=== PATIENT | male | born 1950 | race Caucasian/White ===

== ENCOUNTER 2020-05-09 11:43 | Outpatient (CLI) | payer OTHER, SELFPAY ==
[2020-05-09 12:22] LABS: Basophils Absolute Auto 0.1 K/mm3 (0.0-0.1); Basophils Percent Auto 1.4 % (0.2-1.2); Eosinophils Absolute Auto 0.2 K/mm3 (0-0.3); Eosinophils Percent Auto 4.1 % (0-4.4); Hematocrit 43.2 % (42.0-52.0); Hemoglobin 14.7 g/dL (14.0-18.0); Immature Granulocyte Absolute 0.02 K/mm3 (0.00-0.031); Immature Granulocyte Percent A 0.3 % (0-0.5); Lymphocytes Absolute Auto 2.55 K/mm3 (0.9-3.2); Lymphocytes Percent Auto 43.1 % (18.3-44.2); Mean Corpuscular Volume 105.9 fl (80-100); Mean Platelet Volume 10.5 fl (7.4-10.4); Monocytes Absolute Auto 0.6 K/mm3 (0.1-0.6); Monocytes Percent Auto 9.6 % (2.6-8.5); Neutrophils Absolute Auto 2.5 K/mm3 (1.3-6.7); Neutrophils Percent Auto 41.5 % (45.5-73.1); Platelet Count Result 162 k/mm3 (150-375); Red Blood Count 4.08 M/mm3 (4.6-6.20); Red Cell Distribution Width 14.6 % (11.5-14.5); White Blood Count 5.9 K/mm3 (4.5-10.0)
[2020-05-09 12:31] LABS: Prothrombin Time 14.1 Seconds (11.1-14.7)
[2020-05-09 12:34] LABS: Alanine Aminotransferase 19 U/L (4-50); Albumin Level 3.8 g/dL (3.5-5.1); Alkaline Phosphatase 70 U/L (38-126); Anion Gap 3 mmol/L (8-16); Aspartate Amino Transferase 24 U/L (17-59); Bilirubin,Total 0.4 mg/dL (0.2-1.3); Blood Urea Nitrogen 14 mg/dL (9-20); Calcium 8.5 mg/dL (8.4-10.2); Carbon Dioxide 31 mmol/L (22-30); Chloride 106 mmol/L (98-107); Estimated Glomerular Filt Rate > 60; Glucose 98 mg/dL (75-110); Magnesium 1.9 mg/dL (1.6-2.3); Potassium 4.8 mmol/L (3.4-5.0); Sodium 140 mmol/L (137-145)
[2020-05-09 13:20] LABS: Free T4 Free Thyroxine 0.95 ng/mL (0.78-2.19)
== END 2020-05-09 11:44 | disposition home or self-care (01) ==
PROVIDERS: PCP Internal Medicine; Referring Provider Nurse Practitioner Adult Health; Visit Provider Internal Medicine Cardiovascular Disease
DX: I25.5 Ischemic cardiomyopathy (principal); I47.2 Ventricular tachycardia; Z45.02 Encounter for adjustment and management of automatic implantable cardiac defibrillator; I25.10 Atherosclerotic heart disease of native coronary artery without angina pectoris
CPT/HCPCS: 36415; 80053; 83735; 84439; 84443; 85025; 85610

== ENCOUNTER 2021-01-16 09:42 | Emergency (ER) | payer OTHER, SELFPAY ==
[2021-01-16 09:53] VITALS: BP 154/69; PULSE 50; RESP 16; TEMP 35.7; O2SAT 99
--- NOTE | 2021-01-16 10:17 | ED.GENADULT ---
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 Patient states he was moving a heavy chest of drawers on , January 11. Patient states the next morning when he woke it hurt to walk and he was having pain on the right buttock and right leg. Patient denies numbness denies tingling denies any other associated symptoms. Patient states he has a history of bulging disc in his lumbar area. Patient denies any change to his bowel bladder functions. MD complaint: right back pain Related Data Home Medications Medication Instructions Recorded Confirmed aspirin 81 mg tablet,delayed 81 mg PO DAILY 05/07/19 05/23/20 release metoprolol tartrate 100 mg tablet 100 mg PO DAILY 05/07/19 05/23/20 Allergies Allergy/AdvReac Type Severity Reaction Status Date / Time egg Allergy Unknown Rash Verified 01/16/21 10:22 tramadol Allergy Unknown Rash Verified 01/16/21 10:22 EGGS Allergy Unknown RASH Uncoded 01/16/21 10:22 Review of Systems Review of Systems: CONSTITUTIONAL: Denies body aches, fever, chills, or sweats. EYES: Denies visual changes, redness, or discharge. ENT: Denies rhinorrhea, congestion, sore throat, or otalgia. CARDIOVASCULAR: Denies chest pain, palpitations, or edema. RESPIRATORY: Denies cough or dyspnea. GASTROINTESTINAL: Denies abdominal pain, nausea, vomiting, or diarrhea. GENITOURINARY: Denies dysuria or hematuria. SKIN: Denies rash, itching, or wounds. MUSCULOSKELETAL: + right lower back and buttock pain, joint pain, or myalgia. NEUROLOGIC: Denies headache, numbness, tingling, or weakness. PSYCH: Denies depression or anxiety. All systems reviewed & are unremarkable except as noted in HPI and below PMFSH Past Medical History Medical History Coronary atherosclerosis Major depressive disorder, recurrent, unspecified Smoking 1/2 pack a day or less Family History Family History Father Diabetes mellitus Hypertension Mother Diabetes mellitus Hypertension Sibling Hypertension Social History Social History Smoking status: Current every day smoker (7 cigs a day) Tobacco type: cigarettes (2-3 cigarettes a day) Alcohol intake: never Comments At time of signature, I have reviewed and agree with nursing past medical, surgical, social and family history unless otherwise noted. Please see nursing chart for further information. There is no relevant family history pertinent to the presenting complaint Exam Narrative: GENERAL: Well-appearing, well-nourished, and in no acute distress. HEAD: Normocephalic, atraumatic. EYES: EOMI. No redness or drainage. Conjunctivae normal. ENT: Mucous membranes pink and moist. Nares clear. No rhinorrhea. NECK: Normal AROM. Supple. . MUSCULOSKELETAL: No bony tenderness; Positive straight leg test for right sciatica, neurovascular exam intact Right lower extremity. Pain with palpation right buttock. EXTREMITIES: Normal range of motion. No edema. SKIN: Warm, dry, no rash. Capillary refill normal. Normal skin turgor. NEURO: No focal deficits. Alert and oriented x3. Gait steady. PSYCH: Normal affect. No signs of depression or anxiety. Course Vital Signs Vital signs: Vital Signs Temperature 35.7 C L 01/16/21 09:53 Pulse Rate 50 L 01/16/21 09:53 Respiratory Rate 16 01/16/21 09:53 Blood Pressure 154/69 H 01/16/21 09:53 Pulse Oximetry 99 01/16/21 09:53 Temperature 35.7 C L 01/16/21 09:53 Pulse Rate 50 L 01/16/21 09:53 Respiratory Rate 16 01/16/21 09:53 Blood Pressure 154/69 H 01/16/21 09:53 Pulse Oximetry 99 01/16/21 09:53
== END 2021-01-16 10:34 | disposition home or self-care (01) ==
PROVIDERS: Emergency Provider Nurse Practitioner Family; PCP Internal Medicine
DX: M54.31 Sciatica, right side (principal); F17.210 Nicotine dependence, cigarettes, uncomplicated; I25.10 Atherosclerotic heart disease of native coronary artery without angina pectoris; Z79.82 Long term (current) use of aspirin
CPT/HCPCS: 99213; G0463

== ENCOUNTER 2021-12-25 11:34 | Outpatient (CLI) | payer OTHER, SELFPAY ==
[2021-12-25 19:59] LABS: Alanine Aminotransferase 23 U/L (6-50); Albumin Level 4.5 g/dL (3.5-5.1); Alkaline Phosphatase 83 U/L (38-126); Anion Gap 15 mmol/L (8-16); Aspartate Amino Transferase 65 U/L (17-59); Blood Urea Nitrogen 22 mg/dL (9-20); Calcium 9.1 mg/dL (8.4-10.2); Carbon Dioxide 26 mmol/L (22-30); Chloride 101 mmol/L (98-107); Cholesterol 139 mg/dL (0-200); Estimated Glomerular Filt Rate 60; Glucose 96 mg/dL (65-110); HDL Direct 55 mg/dL; Sodium 142 mmol/L (137-145); Triglycerides 60 mg/dL (<150)
[2021-12-25 20:10] LABS: LDL Cholesterol Direct 58 mg/dL
== END 2021-12-25 11:35 | disposition home or self-care (01) ==
LOC: ANHGOSHLAB 11:36
PROVIDERS: PCP Family Medicine; Visit Provider Family Medicine
DX: E78.2 Mixed hyperlipidemia (principal); I10 Essential (primary) hypertension
CPT/HCPCS: 36415; 80053; 80061

== ENCOUNTER 2022-02-25 12:42 | Outpatient (CLI) | payer OTHER, SELFPAY ==
--- NOTE | 2022-02-26 14:54 | P.PCNPFT_ITS ---
PFT Procedure Performed PFT Procedure Performed Plethysmography (Lung Vol) Diffusing Cap (DLCO) Flow Vol Loop Spirometry w/o Bronchodil PFT Interpretation Lung volumes were measured with the body plethysmography method. Lung volumes are unremarkable. Spirometry showed normal FVC, FEV1 but diminished mid ex piratory flow rates and a diminished FEV1 to FVC ratio of 60% suggestive of obstructive airway disease. Lung diffusion capacity is moderately reduced at 53% predicted. No post bronchodilator study carried out. The flow volume loop is consistent with obstructive airway disease. Impression: Mild obstructive airway disease. Moderately reduced lung diffusion capacity.
== END 2022-02-25 12:43 | disposition home or self-care (01) ==
PROVIDERS: PCP Family Medicine; Visit Provider Internal Medicine Cardiovascular Disease
DX: J98.8 Other specified respiratory disorders (principal)
CPT/HCPCS: 94375; 94726; 94729

== ENCOUNTER 2022-08-27 17:43 | Emergency (ER) | payer OTHER, SELFPAY ==
--- NOTE | 2022-08-27 17:58 | ED.URI ---
HPI - URI/Sore Throat General Chief Complaint: Upper Respiratory Infection Stated Complaint: Sinus/Nausea/Diarrhea Time Seen by Provider: 08/27/22 17:55 Source: patient Mode of arrival: ambulatory Limitations: no limitations History of Present Illness HPI Narrative: Fredi is a 72-year-old male patient presenting to the clinic today with complaints of sinus congestion, sinus pressure, nausea, vomiting, and diarrhea for over 1 week. He reports he has a productive cough bringing up yellow phlegm. He is a current smoker of 1 pack per day for 58 years. Denies any shortness of breath currently. Denies any history of asthma or COPD Related Data Home Medications Medication Instructions Recorded Confirmed aspirin 81 mg tablet,delayed 81 mg PO DAILY 05/07/19 01/23/21 release (Adult Low Dose Aspirin) metoprolol tartrate 100 mg tablet 100 mg PO DAILY 05/07/19 01/23/21 Allergies Allergy/AdvReac Type Severity Reaction Status Date / Time egg Allergy Unknown Rash Verified 08/27/22 17:59 tramadol Allergy Unknown Rash Verified 08/27/22 17:59 Review of Systems Review of Systems: Pertinent positives per HPI. Patient denies any fever, chills, rash, headache, visual changes, dizziness, sore throat, shortness of breath, chest pain, palpitations, nausea, vomiting, diarrhea, constipation, abdominal pain, or any urinary issues. PMFSH Past Medical History Medical History Coronary atherosclerosis Major depressive disorder, recurrent, unspecified Smoking 1/2 pack a day or less Family History Family History Father Diabetes mellitus Hypertension Mother Diabetes mellitus Hypertension Sibling Hypertension Social History Social History Smoking status: Current every day smoker Tobacco type: cigarettes (2-3 cigarettes a day) Alcohol intake: never Comments At the time of my signature, I reviewed and agree with the nursing past medical, surgical, social, and family history. There is no relevant family history pertinent to the patient complaint. Exam Narrative: General: Well-developed, well nourished, in no apparent distress Head: Normocephalic, atraumatic Eyes: Pupils equally round and reactive to light bilaterally, EOM intact, sclera and conjunctive clear, no discharge, lids normal Ears: TMs intact and congested, ear canals clear, no drainage, grossly hearing normal. Nose: Nares patent, yellow nasal discharge, moderate inflammation, maxillary and frontal sinus tenderness. Mouth: Oropharynx red without lesions or masses, good dentition, MMM. Postnasal drip Neck: Supple, trachea midline, no enlargement of anterior or posterior cervical nodes, no thyroid masses or goiter palpable. Cardio: Regular rate and rhythm, s1 and s2 normal, no murmur appreciated. Resp: Diminished lung sounds, no rhonchi, rales, wheezing or rubs Course Course Emergency Course: Portions of this record may have been created with voice recognition software. Level of Care: Express Care Visit Vital Signs Vital signs: Vital signs reviewed MDM - URI/Sore Throat MDM Narrative Medical decision making narrative: At the time of visit patient is resting comfortably on the exam table. I suspect he has got acute bacterial rhinosinusitis gastroenteritis. Will send prescription for Augmentin, prednisone, Zofran. Supportive measures were discussed with the patient he voiced understanding discharge instructions and agrees to treatment plan. Differential Diagnosis Differential diagnosis: Likely upper respiratory infection, otitis media, sinusitis, viral infection, bronchitis, influenza, pharyngitis and other (COVID, gastroenteritis) Discharge Plan Discharge Clinical Impression: Acute bacterial rhinosinusitis, Gastroenteritis Patient Disposition: Home, Self-Care Condition: Stable Instructions: Antibiotic Form, Gastroenterit
[2022-08-27 18:00] VITALS: BP 149/70; PULSE 60; RESP 18; TEMP 37.3; O2SAT 100
== END 2022-08-27 18:14 | disposition home or self-care (01) ==
PROVIDERS: Emergency Provider Nurse Practitioner Family; PCP Family Medicine
DX: J01.90 Acute sinusitis, unspecified (principal); K52.9 Noninfective gastroenteritis and colitis, unspecified; I25.10 Atherosclerotic heart disease of native coronary artery without angina pectoris; F17.210 Nicotine dependence, cigarettes, uncomplicated; Z79.82 Long term (current) use of aspirin
CPT/HCPCS: 99213; G0463

== ENCOUNTER 2022-09-06 13:41 | Outpatient (CLI) | payer OTHER, SELFPAY ==
[2022-09-06 14:00] LABS: Basophils Absolute Auto 0.1 K/mm3 (0.0-0.1); Basophils Percent Auto 0.7 % (0.2-1.2); Eosinophils Absolute Auto 0.2 K/mm3 (0-0.3); Eosinophils Percent Auto 2.7 % (0-4.4); Hematocrit 37.7 % (42.0-52.0); Hemoglobin 12.4 g/dL (14.0-18.0); Immature Granulocyte Absolute 0.07 K/mm3 (0.00-0.031); Lymphocytes Absolute Auto 2.51 K/mm3 (0.9-3.2); Lymphocytes Percent Auto 35.6 % (18.3-44.2); Mean Corpuscular HGB Conc 32.9 g/dl (32-36); Mean Corpuscular Hemoglobin 33.8 pg (26-34); Mean Corpuscular Volume 102.7 fl (80-100); Mean Platelet Volume 10.1 fl (7.4-10.4); Monocytes Absolute Auto 0.6 K/mm3 (0.1-0.6); Monocytes Percent Auto 9.1 % (2.6-8.5); Neutrophils Absolute Auto 3.6 K/mm3 (1.3-6.7); Neutrophils Percent Auto 50.9 % (45.5-73.1); Platelet Count Result 304 k/mm3 (150-375); Red Blood Count 3.67 M/mm3 (4.6-6.20); Red Cell Distribution Width 17.2 % (11.5-14.5); White Blood Count 7.1 K/mm3 (4.5-10.0)
[2022-09-06 14:10] LABS: Alanine Aminotransferase 38 U/L (6-50); Albumin Level 3.4 g/dL (3.5-5.1); Alkaline Phosphatase 104 U/L (38-126); Anion Gap 3 mmol/L (8-16); Aspartate Amino Transferase 26 U/L (17-59); Bilirubin,Total 0.8 mg/dL (0.2-1.3); Blood Urea Nitrogen 12 mg/dL (9-20); Carbon Dioxide 32 mmol/L (22-30); Chloride 103 mmol/L (98-107); Estimated Glomerular Filt Rate > 60; Glucose 112 mg/dL (65-110); Potassium 3.3 mmol/L (3.4-5.0); Sodium 138 mmol/L (137-145)
[2022-09-06 14:18] LABS: NT Pro B Type Natriuretic Pept 2950 pg/mL (19.9-100)
[2022-09-06 15:10] LABS: Thyroid Stimulating Hormone Reflex < 0.015 uIU/mL (0.465-4.68)
[2022-09-06 16:22] LABS: Total Triiodothyronine (T3) 1.31 NG/ML (0.97-1.69)
== END 2022-09-06 13:42 | disposition home or self-care (01) ==
PROVIDERS: PCP Family Medicine; Visit Provider Internal Medicine Cardiovascular Disease
DX: I25.5 Ischemic cardiomyopathy (principal); I50.20 Unspecified systolic (congestive) heart failure; I25.10 Atherosclerotic heart disease of native coronary artery without angina pectoris; Z91.89 Other specified personal risk factors, not elsewhere classified; Z79.899 Other long term (current) drug therapy
CPT/HCPCS: 36415; 80053; 83880; 84439; 84443; 84480; 85025

== ENCOUNTER 2023-01-20 15:30 | Outpatient (CLI) | payer OTHER, SELFPAY ==
[2023-01-20 19:26] LABS: Cholesterol 146 mg/dL (0-200); HDL Direct 60 mg/dL; Triglycerides 65 mg/dL (<150)
[2023-01-20 19:37] LABS: LDL Cholesterol Direct 66 mg/dL
[2023-01-20 19:54] LABS: Prostate Specific Antigen 1.2 ng/mL (< OR = 4.0)
== END 2023-01-20 15:31 | disposition home or self-care (01) ==
PROVIDERS: PCP Family Medicine; Visit Provider Family Medicine
DX: Z12.5 Encounter for screening for malignant neoplasm of prostate (principal); Z13.29 Encounter for screening for other suspected endocrine disorder; E78.2 Mixed hyperlipidemia
CPT/HCPCS: 36415; 80061; 84153; 84443; G0103

== ENCOUNTER 2023-09-19 11:46 | Emergency (ER) | payer OTHER, SELFPAY ==
[2023-09-19 11:49] VITALS: BP 147/71; PULSE 50; RESP 16; TEMP 36.6; O2SAT 99
--- NOTE | 2023-09-19 11:51 | ECG_ITS ---
Test Date: 2023-09-19 11:53:38 Measurements Intervals [place] Rate: 50 P: 93 MN: 175 QRS: 110 QRSD: 170 T: -68 QT: 519 QTc: 477 Interpretive Statements ELECTRONIC ATRIAL PACEMAKER INTRAVENTRICULAR CONDUCTION DELAY [130+ ms QRS DURATION] POSSIBLE RIGHT VENTRICULAR HYPERTROPHY [SOME/ALL OF: PROMINENT R IN V1, LATE TRANSITION, RAD, JASON, SSS] INFERIOR MYOCARDIAL INFARCTION , POSSIBLY RECENT No previous ECG available for comparison Electronically Signed On 09-19-2023 12:44:31 CDT by Jackson Mackey M.D.
--- NOTE | 2023-09-19 12:12 | PC.NURSE ---
Pt reports getting off the phone with patient's doctor who originally told them to come to [place] [facility] to be seen, stating that the manufacturing teacher who wants to see patient for the defibrillator and possible change of batteries is at [facility] today and wants patient to go there instead. Robotics Technician and manager marketing communications made aware. Pt reports wanting to leave and go to [facility] now. Pt left WOBS by provider in NAD, wheeled to exit by RN with VSS.
== END 2023-09-19 12:27 | disposition left against medical advice (07) ==
LOC: ANHED 12:21
PROVIDERS: Emergency Provider Family Medicine; PCP Family Medicine
DX: R42 Dizziness and giddiness (principal)
CPT/HCPCS: 93005; 99199

== ENCOUNTER 2024-05-19 10:45 | Outpatient (CLI) | payer OTHER, SELFPAY ==
--- OUTSIDE RECORDS SUMMARY | 2024-05-19 10:56 | XMS_ITS | Encounter Summary ---
Author Organization [facility] Healthcare Address [address] [place] [address] Care Team Providers Care Color Consultant Name Role Phone SanchezKelvin wu Primary Care Provider [phone] Encounter Details Date Type Department Care Team (Late st Contact Info) Description 05/18/2024 Telephone [facility] Medical Group Cardiology [address] [place] [phone] Baldo Bauer MD [address] [place] [address] [address] [place] [address] Social History Tobacco Use Types Packs/Day Years Used Date Smoking Tobacco: Every Day Cigarettes Smokeless Tobacco: Never Alcohol Use Standard Drinks/Week Comments No 0 (1 standard drink = 0.6 oz pur e alcohol) [facility] Utilities Answer Date Recorded In the past 12 months has [employer], gas, oil, or water company threatened to shut off services in your home? No 09/22/2023 Social Connection and Isolation Panel [NHANES] A nswer Date Recorded In a typical week, how many times do you talk on the phone with family, friends, or neighbors? Three times a week 09/22/2023 How often do you get togethe r with friends or relatives? Three times a week 09/22/2023 How often do you attend chur ch or scientologist services? Never 09/22/2023 Do you belong to any clubs o r organizations such as zoroastrian groups, unions, fraternal or athletic groups, or school groups? No 09/22/2023 How often do you attend meet ings of the clubs or organizations you belong to? Never 09/22/2023 Are you , , di vorced, , never , or living with a partner? 09/22/2023 AUDIT-C Answer Date Recorded Q1: How often do you have a drink containing alcohol? Never 10/24/2023 Q2: How many drinks containi ng alcohol do you have on a typical day when you are drinking? Patient does not drink Frequency of Binge Drinking Not on file 09/29 Overall Financial Resource Strain (CARDIA) Answe r Date Recorded How hard is it for you to pa y for the very basics like food, housing, medical care, and heating? Not hard at all 09/22/2023 Hunger Vital Sign Answer Date Recorded Within the past 12 months, y ou worried that your food would run out before you got the money to buy more. Never true 09/22/19 Within the past 12 months, t he food you bought just didn't last and you didn't have money to get more. Never true 09/22/2023 PRAPARE - Transportation Answer Date Re corded In the past 12 months, has l ack of transportation kept you from medical appointments or from getting medications? No 08/30 In the past 12 months, has l ack of transportation kept you from meetings, work, or from getting things needed for daily living? No 09/22/2023 Housing Stability Vital Sign Answer Thai e Recorded In the last 12 months, was t here a time when you were not able to pay the mortgage or rent on time? No 09/22/2023 In the past 12 months, how m any times have you moved where you were living? 0 09/22/2023 At any time in the past [address] [facility], were you homeless or living in a half-way (including now)? No 09/22/2023 Personal Safety Answer Date Recorded Have you ever been in or are you currently in a harmful physical or emotional relationship or is someone making you feel afraid or unsafe? Denies 10/24/2023 Sex and Gender Information Value Date Recorded Sex Assigned at Not on file Legal Sex Male 10:23 AM ADVANCED PRACTICE NURSE Gender Identity Not on file Sexual Orientation Not on file documented as of this encounter Miscellaneous Notes * Telephone Encounter - Vanessa Cheung RN - 05/18/2024 4:17 PM CST Left message reminding patient of his pacemaker defibrillator appointment on 05/1924 at 10:30. NCED PRACTICE NURSE documented in this encounter Plan of Treatment Not on file documented as of this encounter Visit Diagnoses Not on filedocumented in this encounter Care Teams Color Consultant Relationship Specialty Start Date End Date Kelvin Dolan DO PCP - General Family Medicine 10/17/22 documented as of this encounter
--- OUTSIDE RECORDS SUMMARY | 2024-05-19 10:56 | XMS_ITS | Clinical Summary ---
Author Organization [facility] [address] Address [address] [place] [address] Care Team Providers Care Shell Freezing Machine Operator Name Role Phone SanchezKelvin wu Primary Care Provider [phone] Allergies No known active allergies Medications aspirin 81 mg enteric coated tablet Take 1 tablet (81 mg total) by mouth daily Active atorvastatin (LIPITOR) 80 mg tablet Take 1 tablet (80 mg total) by mouth daily Active clopidogreL (PLAVIX) 75 mg tablet Take 1 tablet (75 mg total) by mouth daily Active losartan (COZAAR) 25 mg tablet Take 1 tablet (25 mg total) by mouth daily 30 tablet 09/24/2023 5 Active spironolactone (ALDACTONE) 25 mg tablet Take 1 tablet (25 mg total) by mouth daily 30 tablet 09/24/2023 5 Active amiodarone (PACERONE) 100 mg tablet Take 1 tablet (100 mg total) by mouth daily 30 tablet 11/19/2023 5 Active metoprolol XL (TOPROL-XL) 200 mg extended release tabletIndication s:Ischemic cardiomyopathy,V T (ventricular tachycardia) (HCC),ICD (implantable cardioverter-def ibrillator) discharge,Acharya ry artery disease involving [place] coronary artery of [place] heart without angina pectoris TAKE 1 TABLET BY MOUTH EVERY DAY 90 tablet 1 12/09/2023 Active Active Problems Problem Noted Date Diagnosed Date ICD (implantable cardioverte r-defibrillator) battery depletion 09/19/2023 Near syncope 09/19/2023 Cardiomyopathy, ischemic 01/31/2023 Pulmonary HTN 10/17/2022 Noncompliance 07/03/2022 Mixed hyperlipidemia 02/08/2022 HFrEF (heart failure with re duced ejection fraction) ([facility]) 02/08/2022 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 Cardiovascular stress test abnormal 05/09/2020 Overview (05/09/2020): Added automatically from request for surgery [id number] ICD (implantable cardioverter-defibrillator) dis charge 02/02/2020 Coronary artery disease invo lving [place] coronary artery of [place] heart without angina pectoris 07/01/2017 VT (ventricular tachycardia) 01/26/2016 Overview (07/04/2016): NSVT (nonsustained ventricular tachycardia) Benign hypertension 01/26/2016 Overview (07/04/2016): HTN (hypertension), benign Chronic obstructive pulmonary disease 01/26/2016 Overview (07/04/2016): Chronic obstructive pulmonary disease, unspecified COPD type Cardiomyopathy 01/26/2016 Overview (07/04/2016): Cardiomyopathy Tobacco use 01/26/2016 Overview (07/04/2016): Tobacco abuse History of coronary artery bypass surgery 2015 Overview (07/04/2016): S/P CABG x 3 ICD (implantable cardioverter-defibrillator) in place 01/26/2016 Overview (05/12/2024): [employer] Vigilant Dual ICD. Dx: ICM, VT. DOI 10/24/2023-Deann. Chronic leads 09/23/2012. Latitude remote monitoring. Resolved Problems Problem Noted Date Diagnosed Date Resolved Date At risk for amiodarone toxic ity with retirement use 02/08/2022 01/31/2023 Dyslipidemia 01/26/2016 02/08/2022 Overview (07/04/2016): Dyslipidemia Encounters Date Type Department Care Team Description 05/19/2024 10:[address] DRIVER Ancillary Procedure [facility] [address] [place] [phone] Ischemic cardiomyopathy; ICD (implantable cardioverter-defibri llator) in place; VT (ventricular tachycardia) (HCC); HFrEF (heart failure with reduced ejection fraction) (CMS/HCC) (HCC) 05/18/2024 Telephone [facility] [address] [place] [address] [address] [facility] [place] [phone] Baldo Bauer MD 04/27/2024 Telephone [facility] Cardiology [address] [place] [address] [address] [facility] [place] [phone] Baldo Bauer MD from Last 3 Months Surgical History Surgery Date Site/Laterality Comments CORONARY ARTERY BYPASS GRAFT 2012 Coronary Artery Bypass Graft CARDIAC DEFIBRILLATOR PLACEMENT 03/31/2012 - 03/30/2013 Implantable Defibrillator Medical History Medical History Date Comments Cardiovascular disease Coronary Artery Disease Motion sickness Coronary artery disease Myocardial infarction (HCC) Hyperlipidemia Irritable bowel syndrome Tobacco dependence syndrome Ischemic cardiomyopathy Family History Medical History Relation Name Comments Diabetes Father Diabetes Mother Relation Name Status Comments Father Alive Mother Social History Tobacco Use Types Packs/Day Years Used Date Smoking Tobacco: Every Day Cigarettes Smokeless Tobacco: Never Tobacco Cessation:Ready to Q uit: No; Counseling Given: Yes Alcohol Use Standard Drinks/Week Comments No 0 (1 standard drink = 0.6 oz pur e alcohol) [facility] Utilities Answer Date Recorded In the past 12 months has [employer], gas, oil, or water [employer] threatened to shut off services in your [...] often do you attend chur ch or samaritan services? Never 09/22/2023 Do you belong to any clubs o r organizations such as catholic groups, unions, fraternal or athletic groups, or [...] any time in the past 12 m [facility], were you homeless or living in a jail (including now)? No 09/22/2023 Personal Safety Answer Date Recorded Have you ever been in or are you currently in a harmful physical or emotional relationship or is someone making you feel afraid or unsafe? Denies 10/24/2023 Sex and Gender Information Value Date Recorded Sex Assigned at Not on file Legal Sex Male 10:[address] DRIVER Gender Identity Not on file Sexual Orientation Not on file Obstetrics History Last Filed Vital Signs Vital Sign Reading Time Taken Comments Blood Pressure 129/69 10/24/2023 11:00 AM CDT Pulse 60 10/24/2023 11:00 AM CDT Temperature 36.7 C (98.1 F) 09/22/2023 11:45 AM CDT Respiratory Rate 13 10/24/2023 11:00 AM CDT Oxygen Saturation 97% 10/24/2023 11:00 AM CDT Inhaled Oxygen Concentration - - Weight 56.5 kg (124 lb 9 oz) 10/24/2023 7:32 AM CDT Height 170.2 cm (5' 7 ) 10/24/2023 7:32 AM CDT Body Mass Index 19.51 10/24/2023 7:32 AM CDT Plan of Treatment Health Maintenance Due Date Last Done Comments Colon Cancer Screening-Colonoscopy 1950 Depression Screening 1950 Hepatitis C Screening 1950 DTaP/Tdap/Td Vaccine (1 - Tdap) 1963 Hepatitis B Screening 1970 Pneumococcal vaccine 65+ (1 of 2 - PCV) 1971 Zoster Vaccine (1 of 2) 2002 Abdominal Aortic Aneurysm (AAA) Screen 2017 Well Visit 65+ 2017 Influenza Vaccine (#1) 2023 Fall Risk Assessment 10/23/2024 10/24/2023 Medical Devices Implanted Type Area Service Coordinator Elderly Facility Device Identifier Shelf Expiration Date Model / Serial / Lot Icd-09/23/2012 Implanted: [id number] (Quantity not on file) ICD Chest ICM [employer] Dom Defibrillator Dual Chamber Sewer Separation Designer D Mri Compatible Vigilant [id number] [id number] - [id number] - [id number] Implanted:Qty: 1 on 10/24/2023 by Hoang Zacarias MD at [facility] [employer] [id number] 04/27/2025 33 / [id number] / Insurance [facility] Member Subscriber Plan / Payer (Ef fective 2015-Present) Name:LILIBETH RODRIGUEZ E Relation to Subscriber:Self Name:Lilibeth Rodriguez Payer ID:[id number] ([facility]) Type:MEDICARE RISK OTHER Address: [place] [id number] [facility] [facility] Advance Directives For more information, please contact: [phone] * Full Code (Latest Code Status on File) Date Activated Date Inactivated Comments 10/24/2023 10:13 AM 10/27/2023 4:18 PM * Full Code Date Activated Date Inactivated Comments 09/19/2023 6:02 PM 09/22/2023 5:28 PM Care Teams Shell Freezing Machine Operator Relationship Specialty Start Date End Date Kelvin Dolan DO PCP - General Family Medicine 10/17/22
--- OUTSIDE RECORDS SUMMARY | 2024-05-19 10:56 | XMS_ITS | Referral Summary ---
Author Organization [facility] [address] [facility] [address] Address [address] [place] [address] Care Team Providers Care Pile Driving Supervisor Name Role Phone Kelvin Dolan Primary Care Provider [phone] Encounters Date Type Department Care Team Description 05/19/2024 10:30 AM TRIAGE RN Ancillary Procedure [facility] Medical [facility] Cardiology [address] [facility] [address] [place] [address] Ischemic cardiomyopathy; ICD (implantable cardioverter-defibri llator) in place; VT (ventricular tachycardia) ([facility]); HFrEF (heart failure with reduced ejection fraction) (CMS/HCC) ([facility]) 05/18/2024 Telephone [facility] [address] [place] [address] [place], [place] [address] [place] [address] Baldo Bauer MD 04/27/2024 Telephone [facility] [address] [place] [address] [place] [address] Baldo Bauer MD from Last 3 Months Allergies No known active allergies Medications aspirin [...] mg total) by mouth daily 30 tablet 11 09/24/2023 Active spironolactone (ALDACTONE) 25 mg tablet Take 1 tablet (25 mg total) by mouth daily 30 tablet 11 09/24/2023 5 Active amiodarone (PACERONE) 100 mg tablet Take 1 tablet (100 mg total) by mouth daily 30 tablet 11 11/19/2023 5 Active metoprolol XL (TOPROL-XL) 200 mg extended release tabletIndication s:Ischemic cardiomyopathy,V T (ventricular tachycardia) ([facility]),ICD (implantable cardioverter-def ibrillator) discharge,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 TAKE 1 TABLET BY MOUTH EVERY DAY 90 tablet 1 12/09/2023 Active Active Problems Problem Noted Date Diagnosed Date ICD (implantable cardioverte r-defibrillator) battery depletion 09/19/2023 Near syncope 09/19/2023 Cardiomyopathy, ischemic 01/31/2023 Pulmonary HTN 10/17/2022 Noncompliance 07/03/2022 Mixed hyperlipidemia 02/08/2022 HFrEF (heart failure with re duced ejection fraction) ([facility]) 02/08/2022 [facility] current use of antiarrhythmic drug Cardiovascular stress test abnormal 05/09/2020 Overview (05/09/2020): Added automatically from request for surgery [id number] ICD (implantable cardioverter-defibrillator) dis charge 02/02/2020 Coronary artery disease invo lving morongo coronary artery 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 Dx: ICM, VT. DOI 10/24/2023-Deann. Chronic leads 09/23/2012. Latitude remote monitoring. 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 Never 09/22/2023 Do you belong to any clubs o r organizations such as pentecostalism groups, unions, fraternal or athletic groups, or [...] any time in the past 12 m onths, were you homeless or living in a custodial (including now)? No 09/22/2023 Personal Safety Answer Date Recorded Have you ever been in or are you currently in a harmful physical or emotional relationship or is someone making you feel afraid or unsafe? Denies 10/24/2023 Sex and Gender Information Value Date Recorded Sex Assigned at Not on file Legal Sex Male 10:23 AM TRIAGE RN Gender Identity Not on file Sexual Orientation Not on file Last Filed Vital Signs Vital Sign Reading [...] 10/24/2023 7:32 AM CDT Plan of Treatment Not on file Medical Devices Implanted Type Area Taste Tester Device Identifier Shelf Expiration Date Model / Serial / Lot Icd-09/23/2012 Implanted: 013 (Quantity not on file) ICD Chest ICM [employer] [facility] Defibrillator Dual Chamber Golf Course Assistant D Mri Compatible Vigilant 0.99x5.37x7.68cm D233 - [id number] - [id number] Implanted:Qty: 1 on 10/24/2023 by Hoang Zacarias MD at [facility] [employer] [facility] [id number] 04/27/2025 D233 / [id number] / Insurance [facility] Advance Directives For more information, please contact: [phone] * Full Code (Latest Code Status on File) Date Activated Date Inactivated Comments 10/24/2023 10:13 AM 10/27/2023 4:18 PM * Full Code Date Activated Date Inactivated Comments 09/19/2023 6:02 PM 09/22/2023 5:28 PM Care Teams Pile Driving Supervisor Relationship Specialty Start Date End Date Kelvin Dolan DO PCP - General Family Medicine 10/17/22
--- OUTSIDE RECORDS SUMMARY | 2024-05-19 10:56 | XMS_ITS | Encounter Summary ---
Author Organization [facility] Address [address] [place] [address] Care Team Providers Care Caddy Name Role Phone Kelvin Dolan DO Primary Care Provider [phone] Reason for Visit * Cardiology (Routine) - Closed Specialty Diagnoses / Procedures Referred By Contac t Referred To Contact Diagnoses Ischemic cardiomyopathy ICD (implantable cardioverter-defibrillator) in place VT (ventricular tachycardia) (HCC) HFrEF (heart failure with reduced ejection fraction) (CMS/HCC) (HCC) Procedures DEVICE CHECK - IN OFFICE Hoang Zacarias MD [address] [place] [address] [address] Phone: tel: fax: [facility] Referral ID Status Reason Start Date Expiration Date Visits Re quested Visits Authorized [id number] Closed 09/19/2023 10/18/2024 1 1 Encounter Details Date Type Department Care Team (Latest Contact Info) Description 05/19/2024 10:30 AM MIDDLEWARE SOLUTIONS ARCHITECT Ancillary Procedure [facility] Cardiology [address] [place] [address] Ischemic cardiomyopathy; ICD (implantable cardioverter-defibr illator) in place; VT (ventricular tachycardia) (HCC); HFrEF (heart failure with reduced ejection fraction) (CMS/HCC) (HCC) Social History Tobacco Use Types Packs/Day Years Used Date Smoking Tobacco: Every Day Cigarettes Smokeless Tobacco: Never Alcohol Use Standard Drinks/Week Comments No 0 (1 standard drink = 0.6 oz pur e alcohol) [facility] Utilities Answer Date Recorded In the past 12 months has [employer] gas, oil, or water [employer] threatened to shut off services in your [...] often do you attend chur ch or gnosticism services? Never 09/22/2023 Do you belong to [...] money to buy more. Never true 09/22/19 24 Within the past 12 months, t he [...] any time in the past 12 m [facility], were you homeless or living in a detention (including now)? No 09/22/2023 Personal Safety Answer Date Recorded Have you ever been in or are you currently in a harmful physical or emotional relationship or is someone making you feel afraid or unsafe? Denies 10/24/2023 Sex and Gender Information Value Date Recorded Sex Assigned at Not on file Legal Sex Male 10:23 AM MIDDLEWARE SOLUTIONS ARCHITECT Gender Identity Not on file Sexual Orientation Not on file documented as of this encounter Plan of Treatment Pending Results Name Type Priority Associated Diagnoses Date /Time DEVICE CHECK - IN OFFICE Cardiac Services Routine Ischemic cardiomyopathy ICD (implantable cardioverter-defibril lator) in place VT (ventricular tachycardia) (HCC) HFrEF (heart failure with reduced ejection fraction) (CMS/HCC) (HCC) 05/19/2024 10:21 AM MIDDLEWARE SOLUTIONS ARCHITECT documented as of this encounter Visit Diagnoses Diagnosis Ischemic cardiomyopathy Other specified forms of chronic ischemic heart disease ICD (implantable cardioverter-defibrillator) in place VT (ventricular tachycardia) (HCC) Paroxysmal ventricular tachycardia HFrEF (heart failure with reduced ejection fraction) (CMS/HCC) (HCC) documented in this encounter Care Teams Caddy Relationship Specialty Start Date End Date Kelvin Dolan DO PCP - General Family Medicine 10/17/22 documented as of this encounter
--- OUTSIDE RECORDS SUMMARY | 2024-05-19 10:56 | XMS_ITS | Encounter Summary ---
Author Organization [facility] Address [address] [facility] [address] [place] [address] Care Team Providers Care Senior Applications Engineer Name Role Phone Marcelo Mcleod MD Primary Care Provider [phone] Kelvin Dolan DO Primary Care Provider [phone] Encounter Details Date Type Department Care Team (Late st Contact Info) Description 08/07/2016 Orders Only [facility] ProviderBuddy MD [address] [place] [address] Social History Tobacco Use Types Packs/Day Years Used Date Smoking Tobacco: Former Cigarettes Q uit: 03/31/2012 Alcohol Use Standard Drinks/Week Comments No 0 (1 standard drink = 0.6 oz pur e alcohol) Sex and Gender Information Value Date Recorded Sex Assigned at Not on file Legal Sex Male 10:23 AM ASSEMBLY LEADER Gender Identity Not on file Sexual Orientation Not on file documented as of this encounter Plan of Treatment Not on file documented as of this encounter Procedures Procedure Name Priority Date/Time Associated Diagnosis Comments CARDIOLOGY REPORT 08/07/2016 documented in this encounter Results * CARDIOLOGY REPORT (08/07/2016) Anatomical Region Laterality Modality Other Narrative 08/07/2016 Ordered by an unspecified provider. Historical Provider [facility] Final Result documented in this encounter Visit Diagnoses Not on filedocumented in this encounter Care Teams Senior Applications Engineer Relationship Specialty Start Date End Date Marcelo Mcleod MD [address] [place] [address] PCP - General 07/26/16 10/16/22 Kelvin Dolan DO [address] [place] [address] PCP - General Family Medicine 10/17/22 documented as of this encounter
--- OUTSIDE RECORDS SUMMARY | 2024-05-19 10:56 | XMS_ITS | Encounter Summary ---
Author Organization [facility] Address [address] [place] [address] Phone Care Team Providers Care Edi Consultant Name Role Phone Marcelo Mcleod MD Primary Care Provider [phone] Kelvin Dolan DO Primary Care Provider [phone] Encounter Details Date Type Department Care Team (Late st Contact Info) Description 11/07/2020 Telephone [facility] Cardiology [address] [facility] 8[address] [place] [address] [place] [address] Andrade Pavon MD [address] [facility] [address] [place], [place] [id number] Social History Tobacco Use Types Packs/Day Years Used Date Smoking Tobacco: Every Day Cigarettes Smokeless Tobacco: Never Alcohol Use Standard Drinks/Week Comments No 0 (1 standard drink = 0.6 oz pur e alcohol) Sex and Gender Information Value Date Recorded Sex Assigned at Not on file Legal Sex Male 10:23 AM NURSE ORTHOPAEDIC Gender Identity Not on file Sexual Orientation Not on file documented as of this encounter Plan of Treatment Not on file documented as of this encounter Visit Diagnoses Not on filedocumented in this encounter Care Teams Edi Consultant Relationship Specialty Start Date End Date Marcelo Mcleod MD [address] [place] [address] PCP - General 07/26/16 10/16/22 Kelvin Dolan DO [address] [place] [address] PCP - General Family Medicine 10/17/22 documented as of this encounter
[2024-05-19 11:56] LABS: Alanine Aminotransferase 18 U/L (6-50); Albumin Level 4.3 g/dL (3.5-5.1); Alkaline Phosphatase 78 U/L (38-126); Anion Gap 10 mmol/L (4-12); Aspartate Amino Transferase 22 U/L (17-59); Bilirubin,Total 0.9 mg/dL (0.2-1.3); Blood Urea Nitrogen 17 mg/dL (9-20); Calcium 9.1 mg/dL (8.4-10.2); Carbon Dioxide 27 mmol/L (22-30); Chloride 101 mmol/L (98-107); Cholesterol 118 mg/dL (0-200); Estimated Glomerular Filt Rate 57; Glucose 95 mg/dL (65-110); HDL Direct 56 mg/dL; Potassium 4.4 mmol/L (3.4-5.0); Sodium 138 mmol/L (137-145); Triglycerides 68 mg/dL (<150)
[2024-05-19 12:07] LABS: LDL Cholesterol Direct 49 mg/dL
[2024-05-19 12:27] LABS: Prostate Specific Antigen 1.1 ng/mL (< OR = 4.0)
[2024-05-19 12:40] LABS: Vitamin D 25 Hydroxy 20.5 ng/mL
== END 2024-05-19 10:46 | disposition home or self-care (01) ==
LOC: ANHLAB 10:48
PROVIDERS: PCP Emergency Medicine; Visit Provider Emergency Medicine
DX: E78.5 Hyperlipidemia, unspecified (principal); E55.9 Vitamin D deficiency, unspecified; Z12.5 Encounter for screening for malignant neoplasm of prostate
CPT/HCPCS: 36415; 80053; 80061; 82306; 84153; G0103

== ENCOUNTER 2024-08-04 12:57 | Outpatient (CLI) | payer OTHER, SELFPAY ==
--- OUTSIDE RECORDS SUMMARY | 2024-08-04 13:09 | XMS_ITS | Referral Summary ---
Author Organization [facility] [address] [place] [address] Address [address] [place] [address] Care Team Providers Care Cane Flume Chute Operator Name Role Phone Kelvin Dolan Primary Care Provider [phone] Encounters Date Type Department Care Team Description 05/19/2024 10:30 AM WAREHOUSE OPERATOR Ancillary Procedure [facility] Medical [facility] Cardiology [address] [facility] [address] [place] [address] Ischemic cardiomyopathy; ICD (implantable cardioverter-defibri llator) in place; VT (ventricular tachycardia) ([facility]); HFrEF (heart failure with reduced ejection fraction) ([facility]) 05/18/2024 Telephone [facility] Medical [facility] Cardiology [address] [facility] [address] [place] [address] Baldo Bauer MD from Last 3 [...] by mouth daily 30 tablet 11 11/19/2023 Active metoprolol XL (TOPROL-XL) 200 mg extended release tabletIndication s:Ischemic cardiomyopathy,V T (ventricular tachycardia) (HCC),ICD (implantable cardioverter-def ibrillator) discharge,Acharya ry artery disease involving [place] coronary artery of [place] heart without angina pectoris TAKE 1 TABLET BY MOUTH EVERY DAY 90 tablet 06/10/2024 Active Active Problems Problem Noted Date Diagnosed Date ICD (implantable cardioverte r-defibrillator) battery depletion 09/19/2023 Near syncope 09/19/2023 Cardiomyopathy, ischemic 01/31/2023 Pulmonary HTN 10/17/2022 Noncompliance 07/03/2022 Mixed hyperlipidemia 02/08/2022 HFrEF (heart failure with reduced ejection fract ion) 02/08/2022 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 Dx: ICM, VT. DOI 10/24/2023-Berdy. Chronic leads 09/23/2012. Latitude remote monitoring. Resolved Problems Problem Noted Date Diagnosed Date Resolved Date At risk for amiodarone toxic ity with [facility] use 02/08/2022 01/31/2023 Dyslipidemia 01/26/2016 02/08/2022 Overview (07/04/2016): Dyslipidemia Social History Tobacco Use Types Packs/Day Years Used Date Smoking Tobacco: Every Day Cigarettes Smokeless Tobacco: Never Tobacco Cessation:Ready to Q uit: No; Counseling Given: Yes Alcohol Use Standard Drinks/Week Comments No 0 (1 standard drink = 0.6 oz pur e alcohol) [facility] Utilities Answer Date Recorded In the past 12 months has th e electric, gas, oil, or water company threatened to [...] often do you attend chur ch or confucianism services? Never 09/22/2023 Do you belong to any clubs o r organizations such as quaker groups, unions, fraternal or athletic groups, or [...] any time in the past 12 m [facility], were you homeless or living in a custodial (including now)? No 09/22/2023 Personal Safety Answer Date Recorded Have you ever been in or are you currently in a harmful physical or emotional relationship or is someone making you feel afraid or unsafe? Denies 10/24/2023 Sex and Gender Information Value Date Recorded Sex Assigned at Not on file Legal Sex Male 10:23 AM WAREHOUSE OPERATOR Gender Identity Not on file Sexual Orientation [...] on file Medical Devices Implanted Type Area Assessment Coordinator Device Identifier Shelf Expiration Date Model / Serial / Lot Icd-09/23/2012 Implanted: 013 (Quantity not on file) ICD Chest ICM [employer] Defibrillator Dual Chamber Paint Dipper D Mri Compatible Vigilant 0.99x5.37x7.68cm D233 - [id number] - [id number] Implanted:Qty: 1 on 10/24/2023 by Hoang Zacarias MD at [facility] [employer] [id number] 04/27/2025 D233 / [id number] / Procedures Procedure Name Priority Date/Time Associated Diagnosis Comments DEVICE CHECK - IN OFFICE Routine 05/19/2024 10:21 AM WAREHOUSE OPERATOR Ischemic cardiomyopathy ICD (implantable cardioverter-defibr illator) in place VT (ventricular tachycardia) ([facility]) HFrEF (heart failure with reduced ejection fraction) ([facility]) from Last 3 Months Results * DEVICE CHECK - IN OFFICE (05/19/2024 10:21 AM WAREHOUSE OPERATOR) Anatomical Region Laterality Modality Other Narrative 05/20/2024 10:12 AM WAREHOUSE OPERATOR [employer] Vigilant Dual ICD. Dx: ICM, VT. DOI 10/24/2023-Deann. Chronic leads 09/23/2012. Latitude remote monitoring. Supervising MD: Dr Mackey. Office interrogation of DDD ICD demonstrated appropriate device function. Left pectoral incision well approximated without redness, drainage, or edema noted. Battery function: Ok, 13.0 years remaining battery life to JULIEN. Charge time: 9.9 seconds. Appropriate lead measurements noted-see report for results. Presenting rhythm: AP-VS. Underlying rhythm- SB 36 bpm. AP- 99 %, CAUSE ANALYST- 3 %. No Atrial high rate episodes recorded. No Ventricular tachy arrhythmias recorded. Medications; ASA 81 mg, Plavix, Pacerone, Toprol XL. No programming changes made to device settings. See scanned report. Office device f/u scheduled 08/10/2025. Latitude remote f/u 08/18/2024. Vanessa K. Skye, RN Hoang Zacarias MD [facility] Final Result from Last 3 Months Insurance [facility] Advance Directives For more information, please contact: [phone] * Full Code (Latest Code Status on File) Date Activated Date Inactivated Comments 10/24/2023 10:13 AM 10/27/2023 4:18 PM * Full Code Date Activated Date Inactivated Comments 09/19/2023 6:02 PM 09/22/2023 5:28 PM Care Teams Cane Flume Chute Operator Relationship Specialty Start Date End Date Kelvin Dolan DO PCP - General Family Medicine 10/17/22
--- OUTSIDE RECORDS SUMMARY | 2024-08-04 13:09 | XMS_ITS | Encounter Summary ---
Author Organization [facility] Address [address] [place] [address] Phone Care Team Providers Care Marble Coper Name Role Phone Marcelo Mcleod MD Primary Care Provider [phone] Kelvin Dolan DO Primary Care Provider [phone] Encounter Details Date Type Department Care Team (Late st Contact Info) Description 11/07/2020 Telephone [facility] Cardiology [address] [facility] 8th [place] [address] [place] [address] Andrade Pavon MD [address] [facility] [address] [place], [place] [id number] Social History Tobacco Use Types Packs/Day Years Used Date Smoking Tobacco: Every Day Cigarettes Smokeless Tobacco: Never Alcohol Use Standard Drinks/Week Comments No 0 (1 standard drink = 0.6 oz pur e alcohol) Sex and Gender Information Value Date Recorded Sex Assigned at Not on file Legal Sex Male 10:23 AM ICER HAND Gender Identity Not on file Sexual Orientation Not on file documented as of this encounter Plan of Treatment Not on file documented as of this encounter Visit Diagnoses Not on filedocumented in this encounter Care Teams Marble Coper Relationship Specialty Start Date End Date Marcelo Mcleod MD [address] [place] [address] PCP - General 07/26/16 10/16/22 Kelvin Dolan DO [address] [place] [address] PCP - General Family Medicine 10/17/22 documented as of this encounter
--- OUTSIDE RECORDS SUMMARY | 2024-08-04 13:09 | XMS_ITS | Encounter Summary ---
Author Organization [facility] Address [address] [facility] [address] [place] [address] Care Team Providers Care Barrow Worker Name Role Phone Marcelo Mcleod MD Primary Care Provider [phone] Kelvin Dolan DO Primary Care Provider [phone] Encounter Details Date Type Department Care Team (Late st Contact Info) Description 08/07/2016 Orders Only [facility] ProviderBuddy MD [address] [place] [address] Social History Tobacco Use Types Packs/Day Years Used Date Smoking Tobacco: Former Cigarettes Q uit: 03/31/2012 Alcohol Use Standard Drinks/Week Comments No 0 (1 standard drink = 0.6 oz pur e alcohol) Sex and Gender Information Value Date Recorded Sex Assigned at Not on file Legal Sex Male 10:23 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
--- OUTSIDE RECORDS SUMMARY | 2024-08-04 13:09 | XMS_ITS | Clinical Summary ---
Author Organization [facility] [address] Address [address] [place] [address] Care Team Providers Care Professional Bass Fisherman Name Role Phone SanchezKelvin wu Primary Care Provider [phone] Allergies No known active allergies Medications aspirin [...] cardioverter-def ibrillator) discharge,Acharya ry artery disease involving [place] coronary artery of [place] heart without angina pectoris TAKE 1 TABLET BY MOUTH EVERY DAY 90 tablet 06/10/2024 Active Active Problems Problem Noted Date Diagnosed Date ICD (implantable cardioverte r-defibrillator) battery depletion 09/19/2023 Near syncope 09/19/2023 Cardiomyopathy, ischemic 01/31/2023 Pulmonary HTN 10/17/2022 Noncompliance 07/03/2022 Mixed hyperlipidemia 02/08/2022 HFrEF (heart failure with reduced ejection fract ion) 02/08/2022 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 Dx: ICM, VT. DOI 10/24/2023-Deann. Chronic leads 09/23/2012. Latitude remote monitoring. Resolved Problems Problem Noted Date Diagnosed Date Resolved Date At risk for amiodarone toxic ity with custodial use 02/08/2022 01/31/2023 Dyslipidemia 01/26/2016 02/08/2022 Overview (07/04/2016): Dyslipidemia Encounters Date Type Department Care Team Description 05/19/2024 10:30 AM PIN FEATHER MACHINE OPERATOR Ancillary Procedure [facility] Cardiology [address] [place] [address] Ischemic cardiomyopathy; ICD (implantable cardioverter-defibri llator) in place; VT (ventricular tachycardia) (HCC); HFrEF (heart failure with reduced ejection fraction) (HCC) 05/18/2024 Telephone [facility] Cardiology [address], [place] [address] Baldo Bauer MD from Last 3 [...] drink = 0.6 oz pur e alcohol) [facility] Utilities Answer Date Recorded In the past 12 months has [employer], gas, oil, or water [employer] threatened to shut off services in your [...] often do you attend chur ch or adventism services? Never 09/22/2023 Do you belong to any clubs o r organizations such as temple groups, unions, fraternal or athletic groups, or [...] any time in the past 12 m [facility], were you homeless or living in a longterm (including now)? No 09/22/2023 Personal Safety Answer Date Recorded Have you ever been in or are you currently in a harmful physical or emotional relationship or is someone making you feel afraid or unsafe? 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 FEATHER MACHINE OPERATOR Gender Identity Not on file Sexual [...] (AAA) Screen 2017 Well Visit 65+ 2017 Fall Risk Assessment 10/23/2024 10/24/2023 Influenza Vaccine (Season Ended) 2024 Medical Devices Implanted Type Area Public Affairs Specialist Device Identifier Shelf Expiration Date Model / Serial / Lot Icd-09/23/2012 Implanted: 013 (Quantity not on file) ICD Chest ICM Comenta TV Defibrillator Dual Chamber Inventory Audit Clerk D Mri Compatible Vigilant 0.99x5.37x7.68cm [id number] - [id number] - [id number] Implanted:Qty: 1 on 10/24/2023 by Hoang Zacarias MD at [facility] Comenta TV [id number] 04/27/2025 D233 / [id number] / Procedures Procedure Name Priority Date/Time Associated Diagnosis Comments DEVICE CHECK - IN OFFICE Routine 05/19/2024 10:21 AM PIN FEATHER MACHINE OPERATOR Ischemic cardiomyopathy ICD (implantable cardioverter-defibr illator) in place VT (ventricular tachycardia) (HCC) HFrEF (heart failure with reduced ejection fraction) (HCC) from Last 3 Months Results * DEVICE CHECK - IN OFFICE (05/19/2024 10:21 AM PIN FEATHER MACHINE OPERATOR) Anatomical Region Laterality Modality Other Narrative 05/20/2024 10:12 AM PIN FEATHER MACHINE OPERATOR Solutionreach Vigilant Dual ICD. Dx: ICM, VT. DOI [...] rhythm- SB 36 bpm. AP- 99 %, CRYSTAL GROWER- 3 %. No Atrial high rate episodes recorded. No Ventricular tachy arrhythmias recorded. Medications; ASA 81 mg, Plavix, Pacerone, Toprol XL. No programming changes made to device settings. See scanned report. Office device f/u scheduled 08/10/2025. Latitude remote f/u 08/18/2024. Vanessa Cheung RN Hoang Zacarias MD [facility] Final Result from Last 3 Months Insurance [id number] [place] [address] HEALTHCARE [id number] Member Subscriber Plan / Payer (Ef fective 2015-Present) Name:LILIBETH RODRIGUEZ E Relation to Subscriber:Self Name:Lilibeth Rodriguez Payer ID:[id number] (NAIC) Type:MEDICARE RISK OTHER Address: [place] [id number] Advance Directives For more information, please contact: [phone] * Full Code (Latest Code Status on File) Date Activated Date Inactivated Comments 10/24/2023 10:13 AM 10/27/2023 4:18 PM * Full Code Date Activated Date Inactivated Comments 09/19/2023 6:02 PM 09/22/2023 5:28 PM Care Teams Professional Bass Fisherman Relationship Specialty Start Date End Date Kelvin Dolan DO PCP - General Family Medicine 10/17/22
[2024-08-04 14:05] LABS: Creatine Kinase 66 U/L (55-170)
== END 2024-08-04 12:58 | disposition home or self-care (01) ==
PROVIDERS: PCP Emergency Medicine; Visit Provider Emergency Medicine
DX: R74.8 Abnormal levels of other serum enzymes (principal)
CPT/HCPCS: 36415; 82550

== ENCOUNTER 2024-11-17 10:58 | Outpatient (CLI) | payer OTHER, SELFPAY ==
--- OUTSIDE RECORDS SUMMARY | 2024-11-17 11:34 | XMS_ITS | Encounter Summary ---
Author Organization [facility] Address [address] [place] [address] Care Team Providers Care Bookkeeping Service Sales Agent Name Role Phone Marcelo Mcleod MD Primary Care Provider [phone] Kelvin Dolan DO Primary Care Provider [phone] Nir Damon MD Primary Care Prov ider Enmanuel Gary MD Primary Care Provide r Encounter Details Date Type Department Care Team (Late st Contact Info) Description 08/07/2016 Orders Only [facility] ProviderBuddy MD [address] [place] [id number] Social History Tobacco Use Types Packs/Day Years Used Date Smoking Tobacco: Former Cigarettes Q uit: 03/31/2012 Alcohol Use Standard Drinks/Week Comments No 0 (1 standard drink = 0.6 oz pur e alcohol) Sex and Gender Information Value Date Recorded Sex Assigned at Not on file Legal Sex Male 10:23 AM 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
--- OUTSIDE RECORDS SUMMARY | 2024-11-17 11:34 | XMS_ITS | Encounter Summary ---
Author Organization [facility] Address [address] [place] [address] Phone Care Team Providers Care Chain Maker Name Role Phone Marcelo Mcleod MD Primary Care Provider [phone] Kelvin Dolan DO Primary Care Provider [phone] Nir Damon MD Primary Care Prov ider Enmanuel Gary MD Primary Care Provide r Encounter Details Date Type Department Care Team (Late st Contact Info) Description 11/07/2020 Telephone [facility] Cardiology [address] Advanced Medicine 8th [place] [address] [place] [address] Andrade Pavon MD [address] [place], [place] [id number] Social History Tobacco Use Types Packs/Day Years Used Date Smoking Tobacco: Every Day Cigarettes Smokeless Tobacco: Never Alcohol Use Standard Drinks/Week Comments No 0 (1 standard drink = 0.6 oz pur e alcohol) Sex and Gender Information Value Date Recorded Sex Assigned at Not on file Legal Sex Male 10:23 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 Gender Identity Not on file Sexual Orientation Not on file documented as of this encounter Plan of Treatment Not on file documented as of this encounter Visit Diagnoses Not on filedocumented in this encounter Care Teams Chain Maker Relationship Specialty Start Date End Date Marcelo Mcleod MD [address] [place] [address] PCP - General 07/26/16 10/16/22 Kelvin Dolan DO [address] [place] [address] PCP - General Family Medicine 10/17/22 09/22/24 Nir Damon MD [address] [place] [address] PCP - General Family Medicine 09/23/24 10/12/24 Enmanuel Gary MD [address] [place] [address] PCP - General Emergency Medicine 10/13/24 documented as of this encounter
--- OUTSIDE RECORDS SUMMARY | 2024-11-17 11:34 | XMS_ITS | Clinical Summary ---
Author Organization [facility] [address] Address [address] [place] [address] Care Team Providers Care Street Car Inspector Name Role Phone Enmanuel Gary MD Primary Care Provide r Allergies No known active allergies Medications aspirin 81 mg enteric coated tablet Take 1 tablet (81 mg total) by mouth daily Active atorvastatin (LIPITOR) 80 mg tablet Take 1 tablet (80 mg total) by mouth daily Active amiodarone (PACERONE) 100 mg tablet TAKE 1 TABLET BY MOUTH EVERY DAY 90 tablet 5 Active metoprolol XL (TOPROL-XL) 200 mg extended release tabletIndicatio ns:Ischemic cardiomyopathy, VT (ventricular tachycardia),IC D (implantable cardioverter-de fibrillator) discharge,Coron julia artery disease involving [place] coronary artery of [place] heart without angina pectoris TAKE 1 TABLET BY MOUTH EVERY DAY 90 tablet 5 Active clopidogreL (PLAVIX) 75 mg tablet Take 1 tablet (75 mg total) by mouth daily 90 tablet 5 Active spironolactone (ALDACTONE) 25 mg tablet TAKE 1 TABLET (25 MG TOTAL) BY MOUTH DAILY. 90 tablet 1 5 11/02/19 26 Active losartan (COZAAR) 25 mg tablet TAKE 1 TABLET (25 MG TOTAL) BY MOUTH DAILY. 90 tablet 1 5 11/02/19 26 Active losartan (COZAAR) 25 mg tablet TAKE 1 TABLET (25 MG TOTAL) BY MOUTH DAILY. 30 tablet 5 11/02/19 25 Discontinued spironolactone (ALDACTONE) 25 mg tablet TAKE 1 TABLET (25 MG TOTAL) BY MOUTH DAILY. 30 tablet 5 11/02/19 25 Discontinued Active Problems Problem Noted Date Diagnosed Date ICD (implantable cardioverte r-defibrillator) battery depletion 09/19/2023 Near syncope 09/19/2023 Cardiomyopathy, ischemic 01/31/2023 Pulmonary HTN 10/17/2022 Noncompliance 07/03/2022 Mixed hyperlipidemia 02/08/2022 HFrEF (heart failure with reduced ejection fract ion) 02/08/2022 [facility] current use of antiarrhythmic drug Cardiovascular stress test abnormal 05/09/2020 Overview (05/09/2020): Added automatically from request for surgery [id number] ICD (implantable cardioverter-defibrillator) dis charge 02/02/2020 Coronary artery disease invo lving [place] coronary artery of [place] heart without angina pectoris 07/01/2017 VT (ventricular [...] ICD (implantable cardioverter-defibrillator) in place 01/26/2016 Overview (11/02/2024): [employer] Vigilant Dual ICD. Dx: ICM, VT. DOI 10/24/2023-Berdy. Chronic leads 09/23/2012. Latitude remote monitoring. 10/28/24-Gradual RV lead 0296-Rising Daily Shock Impedance Advisory and potential calcification on defib lead(s). Monitor closely for abrupt changes in impedances. Resolved Problems Problem Noted Date Diagnosed Date Resolved Date At risk for amiodarone toxic ity with group home use 02/08/2022 01/31/2023 Dyslipidemia 01/26/2016 02/08/2022 Overview (07/04/2016): Dyslipidemia Encounters Date Type Department Care Team Description 10/13/2024 10:30 AM CDT Office Visit [facility] Cardiology [address] [place] [address] Baldo Bauer MD Ischemic cardiomyopathy (Primary Dx); HFrEF (heart failure with reduced ejection fraction) (HCC); Coronary artery disease involving [place] coronary artery of [place] heart without angina pectoris; S/P CABG x 3; ICD (implantable cardioverter-defibrill ator) in place; Tobacco abuse 08/24/2024 Orders Only [facility] Cardiology [address] [place] [address] [place] [address] Baldo Bauer MD Ischemic cardiomyopathy (Primary Dx); ICD (implantable cardioverter-defibrill ator) in place; VT (ventricular tachycardia) (HCC) 08/18/2024 7:30 AM CDT Ancillary Procedure [facility] Cardiology [address] [place] [address] [place] [address] Ischemic cardiomyopathy; ICD (implantable cardioverter-defibrill ator) in place from Last 3 Months Surgical History Surgery [...] 0.6 oz pur e alcohol) [facility] Utilities Answer Date Recorded In the past 12 months has th e electric, gas, oil, or water company threatened to shut off services in your home? No 09/22/2023 Social Connection and Isolation Panel Answer Date Recorded In a typical week, how many times do you talk on the phone with family, friends, or neighbors? Three times a week 09/22/2023 How often do you get togethe r with friends or relatives? Three times a week 09/22/2023 How often do you attend chur ch or episcopal services? Never 09/22/2023 Do you belong to any clubs o r organizations such as anabaptist groups, unions, fraternal or athletic groups, or school groups? No 09/22/2023 How often do you attend meet ings of the clubs or organizations you belong to? Never 09/22/2023 Are you , , di vorced, , never , or living with a partner? 09/22/2023 AUDIT-C Answer Date Recorded Q1: How often do you have a drink containing alc ohol? Never 10/24/2023 Average Number of Drinks Not on file 024 Frequency of Binge Drinking Not on file [...] any time in the past 12 m [facility], were you homeless or living in a fci (including now)? No 09/22/2023 Personal Safety Answer Date Recorded Have you ever been in or are you currently in a harmful physical or emotional relationship or is someone making you feel afraid or unsafe? Denies 10/24/2023 Sex and Gender Information Value Date Recorded Sex Assigned at Not on file Legal Sex Male 10:23 AM FUNDING COORDINATOR Gender Identity Not on file Sexual Orientation Not on file Obstetrics History Last Filed Vital Signs Vital Sign Reading Time Taken Comments Blood Pressure 110/68 10/13/2024 10:44 AM CDT Pulse 66 10/13/2024 10:44 AM CDT Temperature 36.7 C (98.1 F) 09/22/2023 11:45 AM CDT Respiratory Rate 16 10/13/2024 10:44 AM CDT Oxygen Saturation 98% 10/13/2024 10:44 AM CDT Inhaled Oxygen Concentration - - Weight 58.1 kg (128 lb) 10/13/2024 10:44 AM CDT Height 170.2 cm (5' 7) 10/13/2024 10:44 AM CDT Body Mass Index 20.05 10/13/2024 10:44 AM CDT Plan of Treatment Health Maintenance [...] Fall Risk Assessment 10/23/2024 10/24/2023 Influenza Vaccine (#1) 2024 Medical Devices Implanted Type Area Design Engineering Technician Device Identifier Shelf Expiration Date Model / Serial / Lot Icd-09/23/2012 Implanted: 013 (Quantity not on file) ICD Chest ICM Chargeback Defibrillator Dual Chamber Airport Representative D Mri Compatible Vigilant 0.99x5.37x7.68cm D233 - [id number] - [id number] Implanted:Qty: 1 on 10/24/2023 by Hoang Zacarias MD at [facility] Medical [employer] [facility] [id number] 04/27/2025 D233 / [id number] / Procedures Procedure Name Priority Date/Time Associated Diagnosis Comments ELECTROCARDIOGRAM REPORT Routine 10/13/2024 Ischemic cardiomyopathy DEVICE CHECK - REMOTE Routine 08/24/2024 12:53 PM CDT Ischemic cardiomyopathy ICD (implantable cardioverter-defibri llator) in place from Last 3 Months Results * Electrocardiogram Report (10/13/2024) 10/13/2024 us Baldo Bauer MD ECG ORDERABLES Final Result * DEVICE CHECK - REMOTE (08/24/2024 12:53 PM CDT) Anatomical Region Laterality Modality Other Narrative 10/15/2024 1:22 PM CDT Metaforic Dual ICD. Dx: ICM. DOI 09/23/2012. Latitude remote monitoring Q3 mo, office device checks Q1 year. Routine DDDR ICD Remote. Transmission attached. Battery status OK, 13 years remaining battery life to JULIEN. Stable Charge time and Shock impedance. Stable lead impedances, pacing, and sensing threshold. Presenting rhythm: AP/VS AP-100 %, COOKIE MIXER HELPER-1 %, (0) AT/AF episodes noted. (0) Ventricular tachy arrhythmias detected. Medication: ASA 81 mg, amiodarone 100 mg, clopidogrel 75 mg, losartan 25 mg, metoprolol XL 200 mg Follow up: Office Pacemaker/ICD scheduled 08/10/25 Latitude remote 11/24/24 Femi Mojica RN us Moody Hernandez MD [facility] PROC EDURES Final Result from Last 3 Months Insurance [facility]ALTHCARE [facility] [facility] Advance Directives For more information, please contact: [phone] * Full Code (Latest Code Status on File) Date Activated Date Inactivated Comments 10/24/2023 10:13 AM 10/27/2023 4:18 PM * Full Code Date Activated Date Inactivated Comments 09/19/2023 6:02 PM 09/22/2023 5:[address] Car Inspector Relationship Specialty Start Date End Date Enmanuel Gary MD [address] [place] [address] PCP - General Emergency Medicine 10/13/24
[2024-11-17 12:30] LABS: Alanine Aminotransferase 12 U/L (6-50); Albumin Level 4.3 g/dL (3.5-5.1); Alkaline Phosphatase 66 U/L (38-126); Anion Gap 7 mmol/L (4-12); Aspartate Amino Transferase 27 U/L (17-59); Bilirubin,Total 0.5 mg/dL (0.2-1.3); Blood Urea Nitrogen 17 mg/dL (9-20); Calcium 9.1 mg/dL (8.4-10.2); Carbon Dioxide 24 mmol/L (22-30); Chloride 105 mmol/L (98-107); Cholesterol 188 mg/dL (0-200); Estimated Glomerular Filt Rate 53; Glucose 90 mg/dL (65-110); HDL Direct 50 mg/dL; Potassium 4.4 mmol/L (3.4-5.0); Sodium 136 mmol/L (137-145); Total Protein 7.4 g/dL (6.3-8.2); Triglycerides 64 mg/dL (<150)
== END 2024-11-17 10:59 | disposition home or self-care (01) ==
LOC: ANHLAB 11:00
PROVIDERS: PCP Emergency Medicine; Visit Provider Emergency Medicine
DX: E78.5 Hyperlipidemia, unspecified (principal); E55.9 Vitamin D deficiency, unspecified
CPT/HCPCS: 36415; 80053; 80061; 82306